=== PATIENT | male | born 1965 | race Caucasian/White ===

== ENCOUNTER 2020-06-04 16:16 | Emergency (ER) | payer OTHER ==
[~2020-06-04] VITALS: Ht 175.3 cm; Wt 81.7 kg
[2020-06-04 18:12] VITALS: BP 110/70
== END 2020-06-04 18:12 | disposition home or self-care (01) ==
LOC: ER 16:16
DX: S82.64XA Nondisplaced fracture of lateral malleolus of right fibula, initial encounter for closed fracture (principal); F17.210 Nicotine dependence, cigarettes, uncomplicated; W19.XXXA Unspecified fall, initial encounter; Y93.89 Activity, other specified; Y92.89 Other specified places as the place of occurrence of the external cause; Y99.8 Other external cause status

== ENCOUNTER 2020-06-05 07:49 | Emergency (ER) | payer OTHER ==
[~2020-06-05] VITALS: Ht 170.2 cm; Wt 79.4 kg
--- NOTE | ~2020-06-05 | EMS ---
[address] [address] EMS Patient Care Report Name: MANNIE BURROUGHS Room #: DEP OKSANA Zepeda#: [id number] Admission: 06/05/20 Attend Phys: Discharge: 06/05/20 Date of : 69 Report #: [id number] THIS REPORT FOR: //name// Report Transmitted: 06/12/2020 14:39 EMS Care Summary [place], [place]/[facility] Incident [id number] @ 06/05/2020 07:30 Incident Location [facility] Patient MANNIE BURROUGHS Male, 54 Years 1965 Patient Address HOMELESS Patient History None Reported, Patient Allergies No known allergies, Patient Medications None Reported, Chief Complaint Foot/Heel Pain Disposition Transported No Lights/[place] Dispatch Reason Falls Transported To [facility] Narrative [id number] responded to the scene of a Fall. Arrived on scene and made patient contact outside of address. Upon arrival, patient found ROBERTS and sitting in a WC. He reports of being seen at [facility] yesterday and having his foot wrapped. Pt claims the wrap/soft cast is too tight and he's wanting to go back to [facility] to have it evaluated [address] [address] EMS Patient Care Report Name: MANNIE BURROUGHS Room #: DEP ER Katelyn#: [id number] Admission: 06/05/20 Attend Phys: Discharge: 06/05/20 Date of : 69 Report #: [id number] again. Cot next to WC and patient self pivots over. Secured on cot via straps, rails up, then moved to back of ambulance. Primary ALS assessment performed. Vitals established. Transport to initiated. Contacted with a short ETA, and report given. Patient voices no additional complaints. Arrived at and patient to ER triage. Report to RN then care released. Initial Vitals @07:45P: 69,R: 20,BP: 130/79,Pain: 8/10,GCS: 15,CO: 0,SpO2: 99,Revised Trauma: 12, Assessments @07:44MENTAL:Person Oriented,Time Oriented,Place Oriented,Event Oriented,SKIN:HEENT:LUNG SOUNDS:ABDOMEN:PELVIS//GI:EXTREMITIES:Right Leg: Weakness,Right Leg: Other,Left Arm: No Abnormalities,Right Arm: No Abnormalities,PULSE:Radial: 2+ Normal,NEURO:No Abnormalities, Impression Extremity Pain Procedures @07:44ALS AssessmentResponse: UnchangedSucceeded Timeline 07:27,Call Received 07:27,Dispatch Notified 07:30,Dispatched 07:31,En Route 07:44,On Scene 07:44,At Patient 07:44,ALS Assessment,Response: UnchangedSucceeded, 07:45,BP: 130/79 M,PULSE: 69,RR: 20 R,SPO2: 99 Ox,ETCO2: ,BG: ,PAIN: 8,GCS: 15, 07:45,Depart Scene 07:46,At Destination 08:02,Call Closed Disclaimer v1.1 Copyright 2020 [employer] This EMS Care Summary contains data elements from the applicable legal record (which may be displayed differently). It is designed to provide pertinent information for the following purposes: continuity of care, clinical quality, and state data reporting. The complete legal record is available to ED staff and administrators of the receiving hospital in [facility]'s Patient Tracker. All data [facility] [address] [place] [address] EMS Patient Care Report Name: MANNIE BURROUGHS Room #: DEP Katelyn#: [id number] Admission: 06/05/20 Attend Phys: Discharge: 06/05/20 Date of : 69 Report #: [id number] is provided "as is."
[2020-06-05 08:17] LABS: HEMATOCRIT 45.8 % (42.0-52.0); HEMOGLOBIN 15.6 gm/dL (14.0-18.0); MCHC 34.2 g/dL (28.0-37.0); MCV 90.6 fL (80.0-100.0); RBC 5.05 mil/uL (4.50-6.00); RDW 14.3 % (10.5-14.5); WBC 5.7 thou/uL (4.0-11.0)
[2020-06-05 08:24] LABS: CALCIUM 9.4 mg/dL (8.5-10.1); POTASSIUM 4.2 mmol/L (3.5-5.1)
[2020-06-05 09:13] LABS: AMP/METHAMP Negative (Negative); BARBITURATES Negative (Negative); BENZODIAZEPINES Negative (Negative); COCAINE Negative (Negative); METHADONE Negative (Negative); OPIATES Negative (Negative); PCP Negative (Negative)
[2020-06-05 12:49] VITALS: BP 125/65
== END 2020-06-05 13:02 | disposition home or self-care (01) ==
LOC: ER 07:49
PROVIDERS: Emergency Medicine
DX: S82.64XD Nondisplaced fracture of lateral malleolus of right fibula, subsequent encounter for closed fracture with routine healing (principal); R45.851 Suicidal ideations; Z46.89 Encounter for fitting and adjustment of other specified devices; F17.210 Nicotine dependence, cigarettes, uncomplicated; W19.XXXD Unspecified fall, subsequent encounter